=== PATIENT | female | born 1950 | race Hispanic/Latino ===

== ENCOUNTER 2019-02-15 06:17 | Observation (INO) | payer MEDICARE ==
--- NOTE | 2019-02-14 11:46 | Diagnostic Imaging Report ---
EXAMINATION: CHEST 2 VIEWS INDICATION: Pre-operative COMPARISON: None FINDINGS: LINES/TUBES:None LUNGS:The lungs are well-inflated. No focal consolidation or pulmonary edema. PLEURA:No pleural effusion or pneumothorax. MEDIASTINUM:The cardiomediastinal silhouette appears normal in size and shape. Atherosclerotic calcifications of the thoracic aorta. BONES/SOFT TISSUES:No acute osseous injury. ABDOMEN:No free air under the diaphragm. IMPRESSION: No focal pneumonia or pulmonary edema. Signed by: Jeni Sauer MD on 02/14/2019 11:43 AM
[2019-02-14 12:28] LABS: BASOPHILS # (AUTO) 0.1 (0.0-0.1); BASOPHILS % 0.6 % (0.0-1.0); EOSINOPHILS # (AUTO) 0.2 (0.0-0.4); EOSINOPHILS % 2.5 % (0.0-6.0); HEMATOCRIT 38.5 % (34.2-44.1); HEMOGLOBIN 12.9 g/dL (12.0-16.0); LYMPHOCYTES # (AUTO) 1.8 (1.0-3.2); LYMPHOCYTES % 20.6 % (18.0-39.1); MEAN CORPUSCULAR HEMOGLOBIN 28.6 pg (28-32); MEAN CORPUSCULAR HGB CONC 33.5 g/dL (31-35); MEAN CORPUSCULAR VOLUME 85.4 fL (81-99); MONOCYTES # (AUTO) 0.7 (0.2-0.8); MONOCYTES % 8.2 % (4.4-11.3); NEUTROPHILS % 67.4 % (38.7-80.0); PLATELET COUNT 331 x10e3/uL (140-360); RED BLOOD COUNT 4.51 x10e6/uL (3.6-5.1)
[2019-02-14 12:45] LABS: CALCIUM 9.7 mg/dL (8.4-10.2); CREATININE, SERUM 1.18 mg/dL (0.57-1.11)
[~2019-02-15] VITALS: Ht 144.8 cm; Wt 84.8 kg
[~2019-02-15 06:17] MED LIST: ATORVASTATIN CA10 MG PO; GLIPIZIDE5 MG PO; LOSARTAN-HCTZ1 EAC1 PO; METFORMIN HCL1000 MG PO; NIFEDIPINE ER30 M1 PO
--- OUTSIDE RECORDS SUMMARY | 2019-02-15 06:19 | XMS REPORT | Summary of Care ---
Author Author [facility] [place] Organization [facility] [place] Address Unknown Phone Unavailable Encounter HQ Encntr_alias(FIN) [id number] Date(s): 02/17/18 - 02/17/18 [facility] [place] [address] [place] [phone] Encounter Diagnosis Pain in right knee (Final) - 02/23/18 Pain in left knee (Final) - Discharge Disposition: Home or Self Care Attending Physician: Javon Lacy MD Referring Physician: Javon Lacy MD Vital Signs No data available for this section Problem List No data available for this section Allergies, Adverse Reactions, Alerts No data available for this section Medications No data available for this section Results No data available for this section Immunizations No data available for this section Procedures No data available for this section Social History No data available for this section Assessment and Plan No data available for this section
--- OUTSIDE RECORDS SUMMARY | 2019-02-15 06:19 | XMS REPORT | Continuity of Care Document ---
Author Author [employer] [place] Address Unknown Phone Unavailable Care Team Providers Care Sleep Tech Name Role Phone [employer] Unavailable Unavailable Problems Problem Status Onset Date Classification Date Reported Comments Source Pain in right knee 02/24/2018 09/06/2018 [facility] [place] M25.56 - PAIN IN KNEE Active 02/17/2018 [facility] [place] 338 - PAIN NEC Active 07/28/2013 [facility] [place] Pain in left knee 09/06/2018 [facility] [place] Medications No Data Provided for This Section Allergies, Adverse Reactions, Alerts No Known Medication Allergies Immunizations No Data Provided for This Section Results No Data Provided for This Section Pathology Reports No Data Provided for This Section Diagnostic Reports Report Value Date Source Knee 1-2 Views Bilateral DX Exam: Right and left knee x- rays, 2 views each Reason for Exam: - bilateral knee pain Comparison Exam: None Discussion: Right: No acute bony abnormalities. Moderate osteoarthritis seen within the medial compartment. No suspicious osteoblastic or osteolytic lesions. Left: No acute bony abnormalities. Mild osteoarthritis seen within the medial compartment. No suspicious osteoblastic or osteolytic lesions. Impression: 1. Bilateral osteoarthritis seen within the medial compartments, right greater than left. 02/17/2018 [facility] [place] Elbow 3 views Three views left elbow. INDICATION: Pain, trauma. FINDINGS: Lateral view is mildly obliqued limiting evaluation for fat pads/joint effusion. Soft tissue swelling overlying the medial elbow. Several subtle linear lucencies projecting over the radial head concerning for nondisplaced fractures. No radial head dislocation. IMPRESSION: Possible nondisplaced fractures of the radial head. Exam is limited by positioning; consider repeat or followup exam. 07/28/2013 [facility] [place] Consultation Notes No Data Provided for This Section Discharge Summaries No Data Provided for This Section History and Physicals No Data Provided for This Section Vital Signs No Data Provided for This Section Encounters Location Location Details Encounter Type Encounter Number Reason For Visit Attending Provider ADM Date DC Date Status Source OD [id number] 338 - PAIN NEC HENRIETTA UREÑA 07/28/2013 07/28/2013 Active [facility] [place] [facility] [place] [facility] [id number] Henrietta Ureña 02/17/2018 02/18/2018 [facility] [place] Procedures No Data Provided for This Section Assessment and Plan No Data Provided for This Section Plan of Care No Data Provided for This Section Social History Social History Date Source No data available for this section 02/18/2018 [facility] [place] Family History No Data Provided for This Section Advance Directives No Data Provided for This Section Functional Status No Data Provided for This Section
--- OUTSIDE RECORDS SUMMARY | 2019-02-15 06:19 | XMS REPORT ---
Author Author [facility] Address Unknown Phone Unavailable Care Team Providers Care Advertising Traffic Manager Name Role Phone MALIKA WEBB Unavailable Unavailable Problems This patient has no known problems. Allergies, Adverse Reactions, Alerts This patient has no known allergies or adverse reactions. Medications This patient has no known medications. Results Test Description Test Time Test Comments Text Results Atomic Results Result Comments CHEST 2 VIEWS 2019-02-14 11:42:00 [place] [address] Patient Name: RHIANNON NUNES MR #: [id number] : 1950 Age/Sex: 68/F Req #: [id number] Adm Physician: Ordered by: MALIKA WEBB MD Report #: [id number] Location: OR Room/Bed: Procedure: [id number] DX/CHEST 2 VIEWS Exam Date: 02/14/19 Exam Time: 1123 REPORT STATUS: Signed EXAMINATION: CHEST 2 VIEWS INDICATION: Pre-operative COMPARISON: None FINDINGS: LINES/TUBES:None LUNGS:The lungs are well-inflated. No focal consolidation or pulmonary edema. PLEURA:No pleural effusion or pneumothorax. MEDIASTINUM:The cardiomediastinal silhouette appears normal in size and shape. Atherosclerotic calcifications of the thoracic aorta. BONES/SOFT TISSUES:No acute osseous injury. ABDOMEN:No free air under the diaphragm. IMPRESSION: No focal pneumonia or pulmonary edema. Signed by: Amy Sauer MD on 02/14/2019 11:43 AM Dictated By: AMY SAUER MD [id number] Transcribed By: MOSES on 02/14/19 1143 COPY TO: MALIKA WEBB MD SCR MAMM BILATERAL UMAIR CAD DIGITAL 2018-09-09 10:34:31 - SCR MAMM BILATERAL UMAIR CAD DIGITALBILATERAL DIGITAL SCREENING MAMMOGRAM 3D/2D WITH CAD: 09/09/2018CLINICAL: Asymptomatic. Digital breast tomosynthesis was performed in addition to routine CC and MLO views. Current mammographic images were evaluated by either a [employer] M-Vu or a [employer] Image[employer]ored[employer] CAD (computer aided detection system). Comparison is made to exams dated 08/12/2017 mammogram, 07/30 mammogram, and 07/19/2015 mammogram - [facility]. The tissue of both breasts is predominantly fatty. There are benign calcifications in the left breast. No suspicious mass, architectural distortion, malignant type calcification, or lymph node abnormality detected. Breast architecture is stable compared to prior exams.IMPRESSION: BENIGNThere is no mammographic evidence of malignancy. Resume annual screening mammography in one year. Claudia Kaur M.D. ar/penrad:09/09/2018 10:34:31 Ad Clerk: Melissa ELMORE, [facility] sent: BIRADS 1-2 Normal Mammogram BI-RADS: 2 Benign
[2019-02-15] MEDS ORDERED: ROPIVACAINE 246.25 MG, EPINEPHRINE HCL 1:1000 1ML 0.5 MG, CLONIDINE HCL 0.08 MG, KETORO... INJ ONE ×5 (06:30)
[2019-02-15] MEDS ORDERED: GABAPENTIN 300 MG CAP ONE (07:14)
[2019-02-15] MEDS ORDERED: CELECOXIB 200 MG CAP ONE (07:14)
[2019-02-15] MEDS ORDERED: DEXAMETHASONE SOD PHOS 10 MG/1 ML VIAL ONE (07:14)
[2019-02-15] MEDS ORDERED: CEFAZOLIN SOD 1 GM/NS 50ML 100 ML IV ONE (07:15)
[2019-02-15] MEDS ORDERED: INSULIN REGULAR, HUMAN 100 UNIT/1 ML 3ML VIAL ONE (08:12)
[2019-02-15] MEDS ORDERED: TRANEXAMIC ACID 1,000 MG/10 ML ML ONE (08:59)
[2019-02-15] MEDS ORDERED: VANCOMYCIN HCL 1,000 MG ONE (08:59)
[2019-02-15] MEDS ORDERED: SODIUM CHLORIDE 0.9% 500ML 500 ML ONE (08:59)
[2019-02-15] MEDS ORDERED: BACITRACIN 50,000 UNIT VIAL ONE (09:00)
[2019-02-15] MEDS ORDERED: SODIUM CHLORIDE 0.9% 1000ML 1,000 ML IV SCH (11:21)
[2019-02-15] MEDS ORDERED: ONDANSETRON HCL INJ 2MG/ML 2ML 2 MG/ML VIAL IV PRN (11:30)
[2019-02-15] MEDS ORDERED: KETOROLAC TROMETHAMINE 30 MG/ML VIAL IV PRN (11:30)
[2019-02-15] MEDS ORDERED: ZOLPIDEM TARTRATE 5 MG TAB PO PRN (11:30)
[2019-02-15] MEDS ORDERED: HYDROCODONE/APAP 5MG-325MG TAB PO PRN (11:30)
[2019-02-15] MEDS ORDERED: DOCUSATE SODIUM 100 MG CAP PO PRN (11:30)
[2019-02-15] MEDS ORDERED: PROMETHAZINE HCL (IM) 25 MG/ML VIAL INJ PRN (11:30)
[2019-02-15] MEDS ORDERED: ACETAMINOPHEN 650 MG SUPP PR PRN (11:30)
[2019-02-15] MEDS ORDERED: DIPHENHYDRAMINE HCL INJ 50 MG/ML VIAL IM/IV PRN (11:30)
[2019-02-15] MEDS ORDERED: ACETAMINOPHEN 1000 MG/100 ML IV SCH (12:00)
--- OUTSIDE RECORDS SUMMARY | 2019-02-15 12:02 | XMS REPORT | Continuity of Care Document ---
Author Author [employer] Address Unknown Phone Unavailable Care Team Providers Care Lead Data Architect Name Role Phone [employer] Unavailable Unavailable Problems Problem Status Onset Date Classification Date Reported Comments Source Pain in right knee 02/24/2018 09/06/2018 [facility] [place] M25.56 - PAIN IN KNEE Active 02/17/2018 [facility] [place] 338 - PAIN NEC Active 07/28/2013 [facility] [place] Pain in left knee 09/06/2018 [facility] [place] Medications No Data Provided for This Section [...] compartments, right greater than left. 02/17/2018 [facility] [place] Elbow 3 views Three views left elbow. [...] consider repeat or followup exam. 07/28/2013 [facility] [place] Consultation Notes No Data Provided for This Section Discharge Summaries No Data Provided for This Section History and Physicals No Data Provided for This Section Vital Signs No Data Provided for This Section Encounters Location Location Details Encounter Type Encounter Number Reason For Visit Attending Provider ADM Date DC Date Status Source OD [id number] 338 - PAIN NEC HENRIETTA UREÑA 07/28/2013 07/28/2013 Active [facility] [place] [facility] [place] Out[facility] [id number] Henrietta Ureña 02/17/2018 02/18/2018 [facility] [place] Procedures No Data Provided for This Section Assessment and Plan No Data Provided for This Section Plan of Care No Data Provided for This Section Social History Social History Date Source No data available for this section 02/18/2018 [facility] [place] Family History No Data Provided for This Section Advance Directives No Data Provided for This Section Functional Status No Data Provided for This Section
--- NOTE | 2019-02-15 12:03 | Operative Report ---
DATE OF PROCEDURE: 02/15/2019 SURGEON: Francisco Faria MD ACCOUNT ANALYST: Bashir Dobson PA-C. PREOPERATIVE DIAGNOSIS: Osteoarthritis right knee. POSTOPERATIVE DIAGNOSIS: Osteoarthritis right knee. PROCEDURE: Right total knee arthroplasty. INDICATIONS: The patient is a 68-year-old lady, who has end-stage arthritis involving her right knee. She has failed conservative management and would like to proceed with a right total knee replacement. The risks and benefits of the procedure have been discussed. She states she understands and wishes to proceed. PROCEDURE IN DETAIL: The patient was brought to the operating room and placed under general anesthetic. She received prophylactic antibiotics, tranexamic acid, and a regional block in the holding area. Her right lower extremity was prepped and draped in a sterile manner. A preoperative time-out was performed. The extremity was exsanguinated and a proximal tourniquet was inflated to 300 mmHg. An anterior incision with a medial parapatellar arthrotomy was performed. Clear synovial fluid was removed from the joint. Soft tissue releases were performed to bring the knee up into flexion with the patella everted. The anterior cruciate ligament was removed. Meniscal remnants and marginal osteophytes were removed. An extramedullary cutting guide was used to resect the proximal tibia. A FantasyBook and Enomaly knee system was used throughout the case. The tibial base plate was a size #3. The central fin punch was impacted and attention was directed towards the distal femur. An intramedullary cutting guide was used to resect the distal femur in 6 degrees of valgus and rotation referencing off a combination of landmarks including Whitesides line, the epicondylar axis and the posterior condyles. The femoral component was a size 4. The anterior and posterior cuts were made. A trial reduction was performed. A 9 mm ultracongruent tibial insert provided appropriate soft tissue balancing in both flexion and extension. The patella was resurfaced with a 29 mm x 9 mm patellar button. The thickness was checked before and after resurfacing and was right around 20 mm. Patellar tracking was noted to be concentric. The trial implants were then all removed. A 100 mL premixed pericapsular SERGIO injection was placed in the surrounding soft tissue. The knee was thoroughly irrigated with a Pulsavac. All bone cuts had been irrigated with a spray mixture of diluted polymyxin and vancomycin spray. The components were cemented into place using a single mix of Palacos cement preloaded with antibiotics. Care was taken to remove all extravasated cement. The wound was further irrigated while the cement cured. The arthrotomy was closed with interrupted #1 Ethibond. The knee was put through flexion and extension to ensure a secure closure. The skin was closed with subcuticular Vicryl and vidhya. A sterile Aquacel bandage and an Juvencio wrap were applied. The patient was extubated and transported to the recovery room in stable condition. Blood loss was minimal. All needle and sponge counts were correct. Francisco Faria MD DR/STEPHON /[id number]
[2019-02-15] MEDS ORDERED: MEPERIDINE HCL INJ 25 MG/ML VIAL ONE (12:40)
--- NOTE | 2019-02-15 13:27 | Diagnostic Imaging Report ---
EXAMINATION: KNEE RIGHT 1-2 VIEWS INDICATION: Postoperative COMPARISON: None FINDINGS: Status post right total knee replacement. Components in anatomic alignment. Subcutaneous postoperative emphysema and surgical skin vidhya. No acute fracture. Small effusion. IMPRESSION: Anatomic alignment status post right total knee replacement. Signed by: Jeni Sauer MD on 02/15/2019 1:24 PM
--- NOTE | 2019-02-15 13:30 | NUR ---
Patient received from recovery, s/p right total knee. Alert and oriented x3, was able to assist with bed transfer. Wrap/dressing dry and intact. Patient reported manageable pain level of 3/10 in right knee. Was able to void using bedpan. Currently allowed ice chips. Says will be bringing walker from home.
[2019-02-15 13:40] VITALS: BP 139/67
[2019-02-15] MEDS ORDERED: PROMETHAZINE 12.5MG/ NACL 0.9% 50 ML IV PRN (14:00)
[2019-02-15 14:10] VITALS: BP 139/67
[2019-02-15] MEDS ORDERED: ONDANSETRON HCL INJ 2MG/ML 2ML 2 MG/ML VIAL ONE (15:03)
[2019-02-15] MEDS ORDERED: SEVOFLURANE INHAL SOLN 250 ML PEN BTL ONE (15:03)
[2019-02-15] MEDS ORDERED: EPHEDRINE SULFATE INJ 50 MG/10 ML SYR ONE (15:03)
[2019-02-15] MEDS ORDERED: GLYCOPYRROLATE INJ 1MG/ 5 ML SYR ONE (15:03)
[2019-02-15] MEDS ORDERED: ACETAMINOPHEN 1000 MG/100 ML IV ONE (15:03)
[2019-02-15] MEDS ORDERED: DEXAMETHASONE SOD PHOS INJ 4 MG/ML VIAL ONE (15:03)
[2019-02-15] MEDS ORDERED: LIDOCAINE HCL 2% LOCAL INJ 5 ML SDV VIAL INJ ONE (15:03)
[2019-02-15] MEDS ORDERED: PROPOFOL IV EMULSION 10 MG/ML 20 ML VIAL ONE (15:03)
[2019-02-15] MEDS ORDERED: NEOSTIGMINE 5 MG/5ML SYR ONE (15:03)
[2019-02-15] MEDS ORDERED: ROPIVACAINE 0.5% 5 MG/ML 30 ML SDV ONE (15:09)
[2019-02-15] MEDS ORDERED: LIDOCAINE 2% /EPINEPHRINE 20 ML SDV INJ ONE (15:09)
[2019-02-15] MEDS ORDERED: MIDAZOLAM HCL 2 MG/2 ML VIAL ONE (15:11)
[2019-02-15] MEDS ORDERED: FENTANYL CITRATE/PF 100MCG/2 ML INJ ONE (15:11)
[2019-02-15] MEDS ORDERED: KETAMINE HCL INJ 50 MG/ML 10 ML VIAL ONE (15:11)
[2019-02-15] MEDS: CEFAZOLIN SOD 1 GM/NS 50ML 50 ML IV SCH ×2 (15:30→22:49)
[2019-02-15] MEDS: HYDROCODONE/APAP 7.5MG-325MG 1 EA TAB PO PRN (15:54)
[2019-02-15 15:59] VITALS: BP 117/56
[2019-02-15] MEDS ORDERED: DEXTROSE 50% SYRINGE 50 ML IV PRN (16:15)
[2019-02-15] MEDS ORDERED: CELECOXIB 100 MG CAP PO SCH (17:00)
[2019-02-15] MEDS ORDERED: NON-FORMULARY MEDICATION (Losartan/Hydrochlorothiazide (Losartan-Hctz 100-25 Mg Tab) 1 TAB PO SCH (17:00)
[2019-02-15] MEDS: ASPIRIN 325 MG TAB PO SCH (17:40)
[2019-02-15] MEDS: GLIPIZIDE 5 MG TAB PO SCH (17:40)
[2019-02-15] MEDS: CELECOXIB 200 MG CAP PO SCH (17:40)
[2019-02-15] MEDS: INSULIN REGULAR, HUMAN 100 UNIT/1 ML 3ML VIAL SQ SCH ×2 (17:40→20:13)
[2019-02-15] MEDS: ACETAMINOPHEN 1000 MG/100 ML 100 ML IV SCH ×2 (18:45→23:30)
[2019-02-15 20:14] VITALS: BP 118/57
[2019-02-15] MEDS ORDERED: ATORVASTATIN 10 MG TAB PO SCH (21:00)
[2019-02-16] VITALS: BP 110/57
[2019-02-16 04:51] VITALS: BP 116/55
[2019-02-16] MEDS: CEFAZOLIN SOD 1 GM/NS 50ML 50 ML IV SCH (05:49)
[2019-02-16 05:53] LABS: HEMOGLOBIN 11.1 g/dL (12.0-16.0)
[2019-02-16] MEDS: ACETAMINOPHEN 1000 MG/100 ML 100 ML IV SCH (06:37)
[2019-02-16] MEDS: HYDROCODONE/APAP 7.5MG-325MG 1 EA TAB PO PRN (07:12)
--- NOTE | 2019-02-16 07:28 | NUR ---
Morning rounds completed. Patient alert and oriented x3. CPM in place. Some c/o pain in right knee. POC discussed. Call ho within reach. Will continue to monitor.
[2019-02-16 08:00] VITALS: BP 126/60
[2019-02-16] MEDS ORDERED: METFORMIN HCL 500 MG TAB CR PO SCH (08:00)
[2019-02-16] MEDS: INSULIN REGULAR, HUMAN 100 UNIT/1 ML 3ML VIAL SQ SCH (08:11)
[2019-02-16] MEDS: GLIPIZIDE 5 MG TAB PO SCH (08:11)
[2019-02-16] MEDS: ASPIRIN 325 MG TAB PO SCH (08:12)
[2019-02-16] MEDS: CELECOXIB 200 MG CAP PO SCH (08:12)
--- NOTE | 2019-02-16 08:49 | NUR ---
DR JOHANSEN OFFICE PREARRANGED FOLLOWING DISCHARGE PLAN OF: HOME HEALTH WITH [facility] CONFIRMED WITH [facility] [phone] DME 3 IN ONE COMMODE. AND CPM PROVIDED BY [facility] [place] [phone] [facility]. WE WILL PROVIDE ROLLING WALK-YOUTH OBTAIN SIGNATURES. IMM SIGNED AND ON CHART COPY LEFT WITH PATIENT GAVE CARD FOR QUESTIONS AND OR CONCERNS.
[2019-02-16 08:55] VITALS: BP 126/60
[2019-02-16] MEDS ORDERED: NON-FORMULARY MEDICATION (Metformin Hcl 1,000 MG) PO SCH (09:00)
[2019-02-16] MEDS ORDERED: LOSARTAN POTASSIUM 100 MG TAB PO SCH (09:00)
[2019-02-16] MEDS ORDERED: HYDROCHLOROTHIAZIDE 25 MG TAB PO SCH (09:00)
[2019-02-16] MEDS ORDERED: ASPIRIN81 MG PO (09:01)
[2019-02-16] MEDS ORDERED: ONDANSETRON HCL 4 MG ORAL DISINTEGRATING TAB PO PRN (09:30)
--- NOTE | 2019-02-16 11:14 | Consultation ---
DATE OF CONSULTATION: REASON FOR CONSULTATION: Postop medical management. HISTORY OF PRESENT ILLNESS: The patient is a 68-year-old lady status post total knee arthroplasty of the right knee for end-stage osteoarthritis. She is doing well postoperatively with minimal right knee pain and denies any chest pain, fever, chills, nausea, vomiting, headache, shortness of breath or dizziness on review of systems. PAST MEDICAL HISTORY: Significant for hypertension, diabetes, hyperlipidemia, chronic kidney disease stage 3. MEDICATIONS: See MAR. ALLERGIES: NONE. SOCIAL HISTORY: Nonsmoker, nondrinker. FAMILY HISTORY: Hypertension. PHYSICAL EXAMINATION: VITAL SIGNS: Temperature is 97.7, pulse 91, blood pressure 110/57, sats 92% on room air. GENERAL: No apparent distress, lying in bed. NECK: Supple. CARDIOVASCULAR: Regular rate and rhythm. LUNGS: Clear to auscultation bilaterally. ABDOMEN: Good bowel sounds. Soft, nontender. EXTREMITIES: No clubbing or cyanosis. Right knee is bandaged with no seepage. NEUROLOGIC: Nonfocal. ASSESSMENT AND PLAN: 1. Anemia. Check CBC. 2. Chronic kidney disease, stage 3. Continue to monitor. 3. Diabetes. Continue current care and monitoring blood sugars. 4. Hypertension. Continue with her medication. 5. Hyperlipidemia. Continue with her home medications. Please see hospital chart for full details. MD RIKKI Payan/STEPHON /[id number]
[2019-02-16] MEDS ORDERED: ACETAMINOPHEN 1000 MG/100 ML IV PRN (11:30)
--- NOTE | 2019-02-16 12:04 | NUR ---
Patient discharged via wheelchair. Given written and verbal discharge instructions, verified understanding. Went home with walker. Instructed to follow up with PCP within 9-11 days after surgery.
== END 2019-02-16 12:00 | disposition home health service (06) ==
LOC: OR 06:17 → PACU V 11:23 → MED/SURG 13:31
PROVIDERS: ADMIT Specialist; ATTEND Specialist
DX: M17.11 Unilateral primary osteoarthritis, right knee (principal); Z79.84 Long term (current) use of oral hypoglycemic drugs; E78.5 Hyperlipidemia, unspecified; E11.22 Type 2 diabetes mellitus with diabetic chronic kidney disease; I12.9 Hypertensive chronic kidney disease with stage 1 through stage 4 chronic kidney disease, or unspecified chronic kidney disease; N18.3 Chronic kidney disease, stage 3 (moderate); D64.9 Anemia, unspecified; Z83.3 Family history of diabetes mellitus; Z82.49 Family history of ischemic heart disease and other diseases of the circulatory system; Z82.61 Family history of arthritis; Z01.810 Encounter for preprocedural cardiovascular examination; Z01.812 Encounter for preprocedural laboratory examination; Z01.811 Encounter for preprocedural respiratory examination
CPT/HCPCS: 27447; 36415 ×3; 71046; 73560; 80048; 82948 ×2; 85014; 85018; 85025; 86850; 86900; 86920; 97110; 97116 ×2; 97162; 97530 ×2; C1713; G0378 ×2; J0131 ×2; J0171; J0690 ×2; J1100 ×2; J1817; J1885; J2001 ×2; J2175; J2250; J2405; J2704; J2795; J3010; J3370; J3490; J7030; J7040